=== PATIENT | male | born 1990 ===

== ENCOUNTER 2018-07-01 07:36 | Emergency (ER) | payer BC ==
--- NOTE | 2018-07-01 08:35 | CR ---
EXAMINATION: Right RIBS HISTORY: Pain COMPARISON: None TECHNIQUE: 2 views FINDINGS/IMPRESSION: There is no displaced rib fracture. Bone mineralization is normal. No right-sided infiltrate, pleural effusion, or pneumothorax.
--- NOTE | 2018-07-01 08:36 | CR ---
EXAMINATION: Left shoulder HISTORY: Pain COMPARISON: None TECHNIQUE: 3 views FINDINGS/IMPRESSION: Joint space narrowing, subchondral sclerosis and cystic changes noted within the glenohumeral joint. There is no fracture or acute osseous abnormality. Bone mineralization is otherwise normal.
[2018-07-01] MEDS ORDERED: Ketorolac 60 MG/2 ML SDV IM ONE (08:48)
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
== END 2018-07-01 09:10 | disposition home or self-care (01) ==
LOC: MW.ED 07:36
DX: S49.92XA Unspecified injury of left shoulder and upper arm, initial encounter (principal); R07.89 Other chest pain; F41.9 Anxiety disorder, unspecified; Z79.899 Other long term (current) drug therapy; V89.2XXA Person injured in unspecified motor-vehicle accident, traffic, initial encounter
CPT/HCPCS: 71100; 73030; 96372; 99283; J1885